=== PATIENT | male | born 1980 | race Caucasian/White ===

== ENCOUNTER 2023-06-03 07:46 | Outpatient (CLI) | payer BC, SELFPAY ==
--- OUTSIDE RECORDS SUMMARY | 2023-06-03 07:51 | XMS_ITS | Clinical Summary ---
Author Name Unknown Organization [facility] Address [place], [place] [address] Care Team Providers Care Quantitative Analyst Marketing Name Role Phone Keyshawn Tierney MD Primary Care Provider [phone] Allergies No known active allergies Medications Medication Sig Dispensed Refills Start Date End Date Status testosterone cypionate (DEPO-TESTOSTERONE ) 100 mg/mL injection Inject 100 mg intramuscular. Every 2 weeks 0 Active lisinopril (PRINIVIL; ZESTRIL) 10 mg tablet Take 10 mg by mouth once daily. 0 Active nystatin (MYCOSTATIN) cream Apply topically to affected area(s). 2-3 times daily 0 Active escitalopram oxalate (LEXAPRO) 20 mg tablet Take 20 mg by mouth once daily. 0 Active metFORMIN (GLUCOPHAGE) 500 mg tablet Take 500-1,000 mg by mouth once daily with a meal. 0 Active atorvastatin (LIPITOR) 40 mg tablet Take 40 mg by mouth once daily. 0 Active cyclobenzaprine (FLEXERIL) 10 mg tablet Take 10 mg by mouth at bedtime if needed for Muscle Spasm. 0 Active HYDROcodone-acetam inophen, 5-325 mg, (NORCO) per tabletIndications: Left elbow pain Take 1-2 tablets by mouth every 4 hours if needed for Pain. Max acetaminophen dose: 4000 mg in 24 hrs. 30 tablet 0 12/09/2018 Active Active Problems No known active problems Social History Tobacco Use Types Packs/Day Years Used Date Smoking Tobacco: Never Smokeless Tobacco: Never Alcohol Use Standard Drinks/Week Comments Not Currently 0 (1 standard drink = 0.6 oz pur e alcohol) Sex and Gender Information Value Date Recorded Sex Assigned at Not on file Gender Identity Not on file Sexual Orientation Not on file Obstetrics History Last Filed Vital Signs Vital Sign Reading Time Taken Comments Blood Pressure 143/87 12/09/2018 4:15 PM CDT Pulse 72 12/09/2018 3:30 PM CDT Temperature 36.2 ??C (97.2 ??F) 12/09/2018 3:30 PM CD T Respiratory Rate 18 12/09/2018 4:15 PM CDT Oxygen Saturation 93% 12/09/2018 4:15 PM CDT Inhaled Oxygen Concentration - - Weight 179 kg (394 lb 9.6 oz) 12/09/2018 9:21 AM CDT Height 182.9 cm (6') 12/09/2018 9:21 AM CDT Body Mass Index 53.52 12/09/2018 9:21 AM CDT Plan of Treatment Not on file Advance Directives Latest Code Status on File Code Status Date Activated Date Inactivated Comments Full Code 12/09/2018 9:12 AM 12/09/2018 6:54 PM Care Teams Quantitative Analyst Marketing Relationship Specialty Start Date End Date Keyshawn Tierney MD [address] [place] [id number] PCP - General Family Practice 12/03/18
--- OUTSIDE RECORDS SUMMARY | 2023-06-03 07:51 | XMS_ITS | Referral Summary ---
Author Name Unknown Organization [facility] Address [address] [place] [id number] Care Team Providers Care Foreclosure Specialist Name Role Phone Ralph Lopez MD Primary Care Provider [phone] Medications No known medications Active Problems Problem Noted Date Diagnosed Date Morbid obesity with BMI of 50.0-59.9, adult 01/18 PEDRO (obstructive sleep apnea) 02/02/2017 Chronic right-sided low back pain without sciati ca 02/02/2017 Fatty liver 02/02/2017 Essential hypertension 02/02/2017 High cholesterol 02/02/2017 Vasculogenic erectile dysfun ction, unspecified vasculogenic erectile dysfunction type 02/02/2017 Social History Tobacco Use Types Packs/Day Years Used Date Smoking Tobacco: Never Smokeless Tobacco: Never Adolescent Education Answer Date Record ed Getting School Help Needed Not on file 01/09 Sex and Gender Information Value Date Recorded Sex Assigned at Not on file Gender Identity Not on file Sexual Orientation Not on file Last Filed Vital Signs Vital Sign Reading Time Taken Comments Blood Pressure 136/98 02/02/2017 12:55 PM CDT Pulse 103 02/02/2017 12:48 PM CDT Temperature 36.8 ??C (98.3 ??F) 02/02/2017 12:48 PM C DT Respiratory Rate 20 02/02/2017 12:48 PM CDT Oxygen Saturation 93% 02/02/2017 12:48 PM CDT Inhaled Oxygen Concentration - - Weight 173.9 kg (383 lb 5 oz) 02/02/2017 12:48 P M CDT Height 180.3 cm (5' 11) 02/02/2017 12:48 PM CDT Body Mass Index 53.46 02/02/2017 12:48 PM CDT Plan of Treatment Not on file Care Teams Foreclosure Specialist Relationship Specialty Start Date End Date Ralph Lopez MD PCP - General Family Practice 02/02/17
--- OUTSIDE RECORDS SUMMARY | 2023-06-03 07:51 | XMS_ITS | Clinical Summary ---
Author Name Unknown Organization [facility] Address [address] [place] [id number] Care Team Providers Care Bobbin Cleaner Name Role Phone Ralph Lopez MD Primary Care Provider [phone] Medications No known medications Active Problems Problem [...] 02/02/2017 12:48 PM CDT Plan of Treatment Health Maintenance Due Date Last Done Comments ADVANCE CARE PLANNING 1981 ANNUAL REVIEW OF HM ORDERS 1981 GLUCOSE 1981 HEPATITIS B IMMUNIZATION (1 of 3 - 3-dose series) 1981 LIPID 1981 YEARLY PREVENTIVE VISIT 1981 COVID-19 Vaccine (#1) 04/05/1982 HIV SCREENING 1996 HEPATITIS C SCREENING 10/05/1999 DTAP/TDAP/TD IMMUNIZATION (1 - Tdap) 2006 INFLUENZA VACCINE (#1) 2022 PHQ-2 (once per calendar year) 2023 HPV IMMUNIZATION Aged Out No longer e ligible based on patient's age to complete this topic IPV IMMUNIZATION Aged Out No longer e ligible based on patient's age to complete this topic MENINGITIS IMMUNIZATION Aged Out No l onger eligible based on patient's age to complete this topic Pneumococcal Vaccine: Pediat rics (0 to 5 Years) and At-Risk Patients (6 to 64 Years) Aged Out No longer eligi ble based on patient's age to complete this topic RSV MONOCLONAL ANTIBODY Aged Out No l onger eligible based on patient's age to complete this topic Care Teams Bobbin Cleaner Relationship Specialty Start Date End Date Ralph Lopez MD PCP - General Family Practice 02/02/17
== END 2023-06-03 07:47 | disposition home or self-care (01) ==
PROVIDERS: PCP Family Medicine; Visit Provider Family Medicine
DX: E88.818 Other insulin resistance (principal); E78.5 Hyperlipidemia, unspecified; R79.89 Other specified abnormal findings of blood chemistry
CPT/HCPCS: 80053; 80061; 84403

== ENCOUNTER 2024-06-10 07:30 | Outpatient (CLI) | payer BC, SELFPAY | END 2024-06-10 07:31 | disposition home or self-care (01) | LOC: NFLDREF 06-14 05:36 | PROVIDERS: PCP Family Medicine; Referring Provider Family Medicine; Visit Provider Family Medicine | DX: E29.1 Testicular hypofunction (principal); I10 Essential (primary) hypertension; E78.5 Hyperlipidemia, unspecified | CPT/HCPCS: 80053; 80061; 84403 ==

== ENCOUNTER 2024-11-23 08:41 | Outpatient (CLI) | payer BC, SELFPAY | END 2024-11-23 08:42 | disposition home or self-care (01) | LOC: NFLDREF 11-25 13:50 | PROVIDERS: PCP Family Medicine; Referring Provider Family Medicine; Visit Provider Family Medicine | DX: R79.89 Other specified abnormal findings of blood chemistry (principal) | CPT/HCPCS: 84403 ==

== ENCOUNTER 2025-04-11 09:20 | Outpatient (CLI) | payer BC, SELFPAY | END 2025-04-11 09:21 | disposition home or self-care (01) | LOC: NFLDREF 04-17 06:01 | PROVIDERS: PCP Family Medicine; Referring Provider Family Medicine; Visit Provider Family Medicine | DX: E78.5 Hyperlipidemia, unspecified (principal); R79.89 Other specified abnormal findings of blood chemistry | CPT/HCPCS: 80053; 80061; 84403 ==